=== PATIENT | female | born 2005 | race Caucasian/White ===

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

== ENCOUNTER 2024-02-15 22:31 | Emergency (ER) | payer MEDICAID, OTHER ==
[~2024-02-15] VITALS: Ht 167.6 cm; Wt 56.4 kg
[2024-02-15 22:31] VITALS: BP 91/45; TEMP 97.6; O2SAT 100
[2024-02-16] MEDS ORDERED: MUPI2OI TOP (00:47)
== END 2024-02-16 01:21 | disposition home or self-care (01) ==
LOC: M ED 22:31
DX: Q30.3 Congenital perforated nasal septum (principal); G43.909 Migraine, unspecified, not intractable, without status migrainosus; F31.9 Bipolar disorder, unspecified; F43.10 Post-traumatic stress disorder, unspecified; Z79.899 Other long term (current) drug therapy; Z88.8 Allergy status to other drugs, medicaments and biological substances

== ENCOUNTER 2024-02-21 11:35 | Emergency (ER) | payer OTHER ==
[~2024-02-21] VITALS: Ht 167.6 cm; Wt 54.4 kg
[~2024-02-21 11:35] MED LIST changes: +MUPI2OI TOP
[2024-02-21 12:58] LABS: BASO % 0.6 % (0.0-1.0); EOS % 0.3 % (0.0-3.0); HEMATOCRIT 36.3 % (36.0-47.0); HEMOGLOBIN 12.4 g/dl (12.0-15.5); LYMPH # 1.4 10^3/uL (1.5-5.0); LYMPH % 19.3 % (24.0-44.0); MEAN CORPUSCULAR HEMOGLOBIN 29.1 pg (27.0-33.0); MEAN CORPUSCULAR HGB CONC 34.2 g/dl (32.0-36.5); MEAN CORPUSCULAR VOLUME 85.2 fl (80.0-96.0); MONO # 0.4 10^3/uL (0.0-0.8); MONO % 4.9 % (2.0-8.0); NEUTROPHILS # 5.4 10^3/uL (1.5-8.5); NEUTROPHILS % 74.6 % (36.0-66.0); PLATELET COUNT, AUTOMATED 305 10^3/uL (150-450); RED BLOOD COUNT 4.26 10^6/uL (4.00-5.40); WHITE BLOOD COUNT 7.2 10^3/uL (4.0-10.0)
[2024-02-21 13:03] LABS: LIPASE 27 U/L (12-53)
[2024-02-21 13:05] LABS: ALBUMIN 3.7 G/DL (3.2-5.2); ALKALINE PHOSPHATASE 90 U/L (46-116); ALT/SGPT 113 U/L (7.0-40); AST/SGOT 116 U/L (<34); BILIRUBIN,DIRECT < 0.1 MG/DL (<0.4); BILIRUBIN,TOTAL 0.2 MG/DL (0.3-1.2); BLOOD UREA NITROGEN 13 MG/DL (9-23); CALCIUM LEVEL 8.9 MG/DL (8.5-10.1); CARBON DIOXIDE LEVEL 24 MMOL/L (20-31); CHLORIDE LEVEL 106 MMOL/L (98-107); CREATININE FOR GFR 0.48 MG/DL (0.55-1.30); GLUCOSE, FASTING 164 MG/DL (60-100); POTASSIUM SERUM 3.6 MMOL/L (3.5-5.1); SODIUM LEVEL 140 MMOL/L (136-145); TOTAL PROTEIN 6.4 G/DL (5.7-8.2)
[2024-02-21] MEDS: HALOPERIDOL 5MG/ML 1ML VIAL IV ONE (13:36)
[2024-02-21] MEDS: NS 1,000 ML IV ONE (13:36)
[2024-02-21] MEDS ORDERED: ISOVUE-370 76% 100ML VIAL As Ordered ONE (13:47)
[2024-02-21 18:00] LABS: AMPHETAMINES LEVEL URINE NEGATIVE (NEGATIVE); BARBITURATES URINE NEGATIVE (NEGATIVE); BENZODIAZEPINES URINE NEGATIVE (NEGATIVE); METHADONE URINE NEGATIVE (NEGATIVE); OPIATES URINE NEGATIVE (NEGATIVE); PHENCYCLIDINE URINE NEGATIVE (NEGATIVE)
[2024-02-21 18:01] LABS: CANNABINOIDS URINE POSITIVE (NEGATIVE); COCAINE METABOLITE URINE POSITIVE (NEGATIVE)
[2024-02-21] MEDS ORDERED: ONDA4TAB6 PO (18:27)
[2024-02-21 18:58] VITALS: BP 114/68; TEMP 98.3; O2SAT 96
== END 2024-02-21 19:10 | disposition home or self-care (01) ==
LOC: M ED 11:35
DX: R10.9 Unspecified abdominal pain (principal); R11.2 Nausea with vomiting, unspecified; R74.01 Elevation of levels of liver transaminase levels; F31.9 Bipolar disorder, unspecified; F43.10 Post-traumatic stress disorder, unspecified; G43.909 Migraine, unspecified, not intractable, without status migrainosus; F17.210 Nicotine dependence, cigarettes, uncomplicated; Z88.8 Allergy status to other drugs, medicaments and biological substances; Z79.899 Other long term (current) drug therapy
CPT/HCPCS: 74177; 74181; 80048; 80076; 80307; 83690; 84702; 85025; 96374; 99283; 99284; J1630; Q9967

== ENCOUNTER 2024-06-10 03:09 | Emergency (ER) | payer OTHER ==
[~2024-06-10 03:09] MED LIST changes: +ONDA-282 PO
[2024-06-10] MEDS ORDERED: OLAN5ZYD PO (14:58)
[2024-06-10] MEDS ORDERED: HYDR-3363 PO (14:58)
[2024-06-10] MEDS ORDERED: TRAZ-252 PO (14:58)
[2024-06-10] MEDS ORDERED: BUPR1FIL SL (14:58)
== END 2024-06-10 03:10 | disposition left against medical advice (07) ==
LOC: M ED 03:09
DX: Z53.21 Procedure and treatment not carried out due to patient leaving prior to being seen by health care provider (principal)

== ENCOUNTER 2024-06-10 03:35 | Emergency (ER) | payer OTHER ==
[2024-06-10 04:20] LABS: BASO % 0.3 % (0.0-1.0); EOS # 0.3 10^3/uL (0.0-0.5); EOS % 2.6 % (0.0-3.0); HEMATOCRIT 36.3 % (36.0-47.0); HEMOGLOBIN 12.5 g/dl (12.0-15.5); LYMPH # 2.1 10^3/uL (1.5-5.0); LYMPH % 17.7 % (24.0-44.0); MEAN CORPUSCULAR HEMOGLOBIN 29.3 pg (27.0-33.0); MEAN CORPUSCULAR HGB CONC 34.4 g/dl (32.0-36.5); MONO # 0.6 10^3/uL (0.0-0.8); MONO % 4.9 % (2.0-8.0); NEUTROPHILS # 8.7 10^3/uL (1.5-8.5); NEUTROPHILS % 74.2 % (36.0-66.0); PLATELET COUNT, AUTOMATED 242 10^3/uL (150-450); RED BLOOD COUNT 4.27 10^6/uL (4.00-5.40); WHITE BLOOD COUNT 11.6 10^3/uL (4.0-10.0)
[2024-06-10] MEDS: NS 1,000 ML IV ONE (04:20)
[2024-06-10 04:35] LABS: BARBITURATES URINE NEGATIVE (NEGATIVE)
[2024-06-10 04:36] LABS: BENZODIAZEPINES URINE NEGATIVE (NEGATIVE); METHADONE URINE NEGATIVE (NEGATIVE); PHENCYCLIDINE URINE NEGATIVE (NEGATIVE)
[2024-06-10 04:38] LABS: ETHYL ALCOHOL (ETHANOL) 0.014 % (0.000-0.010)
[2024-06-10 04:40] LABS: ALBUMIN 4.1 G/DL (3.2-5.2); ALKALINE PHOSPHATASE 85 U/L (46-116); ALT/SGPT 16 U/L (7.0-40); AST/SGOT 16 U/L (<34); BILIRUBIN,DIRECT 0.1 MG/DL (<0.4); BILIRUBIN,TOTAL 0.3 MG/DL (0.3-1.2); BLOOD UREA NITROGEN 15 MG/DL (9-23); CALCIUM LEVEL 9.2 MG/DL (8.5-10.1); CARBON DIOXIDE LEVEL 24 MMOL/L (20-31); CHLORIDE LEVEL 105 MMOL/L (98-107); CREATININE FOR GFR 0.59 MG/DL (0.55-1.30); GLUCOSE, FASTING 134 MG/DL (60-100); POTASSIUM SERUM 3.5 MMOL/L (3.5-5.1); SALICYLATE LEVEL < 3.0 MG/DL (<30); SODIUM LEVEL 136 MMOL/L (136-145); TOTAL PROTEIN 7.2 G/DL (5.7-8.2)
[2024-06-10 04:42] LABS: AMPHETAMINES LEVEL URINE POSITIVE (NEGATIVE); CANNABINOIDS URINE POSITIVE (NEGATIVE); COCAINE METABOLITE URINE POSITIVE (NEGATIVE); CPK CREATINE PHOSPHOKINASE 106 U/L (34-145); OPIATES URINE POSITIVE (NEGATIVE)
[2024-06-10 04:51] LABS: HCG, SERUM QUALITATIVE NEGATIVE (NEGATIVE)
[2024-06-10 06:20] LABS: CK-MB VALUE MASS 1.5 NG/ML (<3.6)
[2024-06-10 06:21] LABS: MB/CK RELATIVE INDEX 1.41 (< OR =4)
[2024-06-10 13:33] VITALS: BP 103/62; O2SAT 99
[2024-06-10] MEDS: NICOTINE 21MG/24HR 1 EA TRANSDERMAL TD ONE (13:35)
[2024-06-10] MEDS ORDERED: OLAN5ZYD PO (14:58)
[2024-06-10] MEDS ORDERED: BUPR1FIL SL (14:58)
[2024-06-10] MEDS ORDERED: HYDR-3363 PO (14:58)
[2024-06-10] MEDS ORDERED: TRAZ-252 PO (14:58)
[2024-06-10] MEDS ORDERED: HOME MED LIST COMPLETE! XX SCH (15:00)
[2024-06-10 16:16] VITALS: TEMP 97.1
== END 2024-06-10 16:46 | disposition home or self-care (01) ==
LOC: M ED 03:35
DX: F15.10 Other stimulant abuse, uncomplicated (principal); F43.21 Adjustment disorder with depressed mood; R00.0 Tachycardia, unspecified; F17.290 Nicotine dependence, other tobacco product, uncomplicated; F12.10 Cannabis abuse, uncomplicated; Z88.8 Allergy status to other drugs, medicaments and biological substances; Z79.899 Other long term (current) drug therapy